=== PATIENT | male | born 1955 | race Two or more races ===

== ENCOUNTER → 2018-05-19 | Outpatient (CLI) | payer OTHER | END | disposition home or self-care (01) | LOC: HKI 13:38 | DX: M79.642 Pain in left hand (principal); M79.632 Pain in left forearm; R20.0 Anesthesia of skin | CPT/HCPCS: G0463 ==

== ENCOUNTER → 2018-08-13 | Outpatient (CLI) | payer OTHER | END | disposition home or self-care (01) | LOC: HKI 11:40 | DX: R53.1 Weakness (principal); G62.9 Polyneuropathy, unspecified; R20.2 Paresthesia of skin; M79.642 Pain in left hand | CPT/HCPCS: G0463 ==